=== PATIENT | male | born 1980 | race African-American/Black ===

== ENCOUNTER 2023-06-10 09:30 | Inpatient (IN) | payer OTHER ==
[2023-06-05 17:55] VITALS: BMI 25.8
[2023-07-01] MEDS ORDERED: MIDAZOLAM HCL 2 MG/2 ML SINGLE DOSE VIAL ONE ×2 (07:12→07:19)
[2023-07-01] MEDS ORDERED: DEXAMETHASONE SOD PHOSPHATE/PF 10 MG/ML SDV ONE (07:12)
[2023-07-01] MEDS ORDERED: ROPIVACAINE HCL 0.5% 30ML VIAL ONE (07:12)
[2023-07-01] MEDS ORDERED: PROPOFOL 40 ML ONE (07:19)
[2023-07-01] MEDS ORDERED: BUPIVACAINE HCL/PF 0.5% (5MG/ML) 10 ML VIAL ONE (08:01)
[2023-07-01] MEDS ORDERED: VANCOMYCIN 1,000 MG VIAL (RESTRICTED TO ID ONLY) ONE ×2 (08:08→09:44)
[2023-07-01] MEDS ORDERED: TRANEXAMIC ACID 1000 MG/10 ML VIAL ONE (09:44)
[2023-07-01] MEDS ORDERED: PHENYLEPHRINE HCL 10 MG/1 ML SINGLE DOSE VIAL ONE (09:44)
[2023-07-01] MEDS ORDERED: ceFAZolin SODIUM 1 GM VIAL ONE (09:44)
[2023-07-01] MEDS ORDERED: ONDANSETRON 4 MG/2 ML VIAL ONE (09:44)
[2023-07-01] MEDS ORDERED: KETOROLAC TROMETHAMINE 30 MG/1 ML VIAL ONE (09:44)
[2023-07-01] MEDS ORDERED: ONDANSETRON 4 MG/2 ML VIAL IVPUSH PRN ×2 (10:16→10:35)
[2023-07-01] MEDS ORDERED: oxyCODONE HCL 5 MG TABLET PO PRN ×2 (10:16)
[2023-07-01] MEDS ORDERED: ACETAMINOPHEN 1000 MG/100 ML BAG IVPB ONE (10:30)
[2023-07-01] MEDS ORDERED: LACTATED RINGERS SOLUTION 1,000 ML IV SCH (10:30)
[2023-07-01] MEDS ORDERED: MAG HYDROX/AL HYDROX/SIMETH 30 ML UNIT-DOSE CUP PO PRN (10:35)
[2023-07-01] MEDS ORDERED: MAGNESIUM HYDROX 2400MG/30ML ORAL SUSPENSION 30 ML CUP PO PRN (10:35)
[2023-07-01] MEDS ORDERED: ACETAMINOPHEN INJECTION 100 ML IVPB ONE (11:33)
[2023-07-01] MEDS: CEFAZOLIN SODIUM 2 GM in DEXTROSE 5%-WATER 100 ML IVPB SCH ×2 (15:12→22:23)
[2023-07-01] MEDS: KETOROLAC TROMETHAMINE 30 MG/1 ML VIAL IVPUSH SCH ×2 (16:02→16:10)
[2023-07-01] MEDS: ACETAMINOPHEN 500 MG TABLET (FP) PO SCH (18:08)
[2023-07-01] MEDS ORDERED: VANCOMYCIN/WATER FOR INJ (PEG) 1,000 MG/200 ML BAG IVPB ONE (21:00)
[2023-07-01] MEDS ORDERED: oxyCODONE HCL 10 MG SUSTAINED ACTING TABLET PO SCH (22:00)
[2023-07-01] MEDS: SENNOSIDES/DOCUSATE COMBO (SENNA PLUS) TABLET (UD) PO SCH (22:25)
[2023-07-01] MEDS: CELECOXIB 200 MG CAPSULE PO SCH (22:25)
[2023-07-01] MEDS: ASPIRIN 81 MG CHEWABLE TABLETS PO SCH (22:26)
[2023-07-02] MEDS: ACETAMINOPHEN 500 MG TABLET (FP) PO SCH ×4 (00:54→19:00)
[2023-07-02] MEDS: CEFAZOLIN SODIUM 2 GM in DEXTROSE 5%-WATER 100 ML IVPB SCH (03:54)
[2023-07-02 08:41] LABS: CALCIUM 9.3 mg/dl (8.5-10.1); CREATININE 0.9 mg/dl (0.6-1.3); POTASSIUM 4.2 mmol/L (3.5-5.1)
[2023-07-02 08:50] LABS: HEMATOCRIT 45.7 % (35.4-49); HEMOGLOBIN 14.1 G/dL (11.7-16.9); MCH 24.4 pg (25.7-33.7); MCHC 30.9 g/dl (32.0-35.9); MEAN CELL VOLUME 78.9 fl (80-96); MEAN PLT VOLUME 9.4 fl (7.5-11.1); PLATELET COUNT 251.1 10^3/uL (134-434); RBC 5.79 10^6/uL (4.00-5.60); RDW 16.7 % (11.9-15.9); WHITE BLOOD COUNT 14.6 10^3/uL (4.0-10.8)
[2023-07-02] MEDS: PANTOPRAZOLE 40 MG TABLET PO SCH (09:10)
[2023-07-02] MEDS: CELECOXIB 200 MG CAPSULE PO SCH ×2 (09:11→22:00)
[2023-07-02] MEDS: ASPIRIN 81 MG CHEWABLE TABLETS PO SCH ×2 (09:11→21:59)
[2023-07-02] MEDS: SENNOSIDES/DOCUSATE COMBO (SENNA PLUS) TABLET (UD) PO SCH ×2 (09:11→21:59)
[2023-07-02] MEDS: CEFTRIAXONE 2 GM in DEXTROSE 5%-WATER 100 ML IVPB SCH (14:15)
[2023-07-03] MEDS: ACETAMINOPHEN 500 MG TABLET (FP) PO SCH ×4 (06:30→19:02)
[2023-07-03 08:38] LABS: HEMATOCRIT 42.9 % (35.4-49); HEMOGLOBIN 13.5 G/dL (11.7-16.9); MCH 24.8 pg (25.7-33.7); MCHC 31.6 g/dl (32.0-35.9); MEAN CELL VOLUME 78.4 fl (80-96); MEAN PLT VOLUME 9.3 fl (7.5-11.1); PLATELET COUNT 310.8 10^3/uL (134-434); RBC 5.47 10^6/uL (4.00-5.60); RDW 16.6 % (11.9-15.9); WHITE BLOOD COUNT 8.3 10^3/uL (4.0-10.8)
[2023-07-03 08:53] LABS: BILIRUBIN,TOTAL 0.3 mg/dl (0.2-1); CALCIUM 8.7 mg/dl (8.5-10.1); CREATININE 0.9 mg/dl (0.6-1.3); PHOSPHOROUS 3.5 (2.5-4.9); POTASSIUM 4.1 mmol/L (3.5-5.1); TOT PROT 6.2 g/dl (6.4-8.2)
[2023-07-03] MEDS: ASPIRIN 81 MG CHEWABLE TABLETS PO SCH ×2 (09:39→22:52)
[2023-07-03] MEDS: CEFTRIAXONE 2 GM in DEXTROSE 5%-WATER 100 ML IVPB SCH (09:39)
[2023-07-03] MEDS: PANTOPRAZOLE 40 MG TABLET PO SCH (09:41)
[2023-07-03] MEDS: LACTOBACILLUS ACIDOPHILUS 1 TABLET PO SCH (09:41)
[2023-07-03] MEDS: SENNOSIDES/DOCUSATE COMBO (SENNA PLUS) TABLET (UD) PO SCH ×2 (09:41→22:51)
[2023-07-03] MEDS: CELECOXIB 200 MG CAPSULE PO SCH ×2 (17:57→22:52)
[2023-07-04] MEDS: ACETAMINOPHEN 500 MG TABLET (FP) PO SCH ×3 (07:15→14:12)
[2023-07-04] MEDS ORDERED: VANCOMYCIN 1,000 MG in DEXTROSE 5%-WATER - 250 ML IVPB SCH (08:00)
[2023-07-04] MEDS: PANTOPRAZOLE 40 MG TABLET PO SCH (09:42)
[2023-07-04] MEDS: CEFTRIAXONE 2 GM in DEXTROSE 5%-WATER 100 ML IVPB SCH (09:42)
[2023-07-04] MEDS: ASPIRIN 81 MG CHEWABLE TABLETS PO SCH ×2 (09:42→22:24)
[2023-07-04] MEDS: LACTOBACILLUS ACIDOPHILUS 1 TABLET PO SCH (09:42)
[2023-07-04] MEDS: CELECOXIB 200 MG CAPSULE PO SCH ×2 (09:42→22:25)
[2023-07-04] MEDS: SENNOSIDES/DOCUSATE COMBO (SENNA PLUS) TABLET (UD) PO SCH ×2 (09:43→22:25)
[2023-07-05] MEDS ORDERED: ACETAMINOPHEN 325 MG TABLET (FP) PO PRN ×2 (07:40→09:02)
[2023-07-05 08:29] LABS: CALCIUM 8.9 mg/dl (8.5-10.1); CREATININE 0.9 mg/dl (0.6-1.3); HEMATOCRIT 42.4 % (35.4-49); HEMOGLOBIN 13.5 G/dL (11.7-16.9); MCH 24.7 pg (25.7-33.7); MCHC 31.9 g/dl (32.0-35.9); MEAN CELL VOLUME 77.6 fl (80-96); MEAN PLT VOLUME 9.4 fl (7.5-11.1); PLATELET COUNT 221.8 10^3/uL (134-434); POTASSIUM 4.1 mmol/L (3.5-5.1); RBC 5.47 10^6/uL (4.00-5.60); RDW 16.1 % (11.9-15.9); WHITE BLOOD COUNT 8.1 10^3/uL (4.0-10.8)
[2023-07-05] MEDS ORDERED: oxyCODONE HCL 5 MG TABLET PO PRN ×2 (09:02)
[2023-07-05] MEDS: CEFTRIAXONE 2 GM in DEXTROSE 5%-WATER 100 ML IVPB SCH (09:25)
[2023-07-05] MEDS: ASPIRIN 81 MG CHEWABLE TABLETS PO SCH ×2 (09:25→21:39)
[2023-07-05] MEDS: PANTOPRAZOLE 40 MG TABLET PO SCH (09:25)
[2023-07-05] MEDS: CELECOXIB 200 MG CAPSULE PO SCH ×2 (09:25→21:39)
[2023-07-05] MEDS: SENNOSIDES/DOCUSATE COMBO (SENNA PLUS) TABLET (UD) PO SCH ×2 (09:25→21:38)
[2023-07-05] MEDS: LACTOBACILLUS ACIDOPHILUS 1 TABLET PO SCH (09:25)
[2023-07-05 14:49] VITALS: RESP 18
[2023-07-06 06:45] VITALS: PULSE 66
[2023-07-06] MEDS: CELECOXIB 200 MG CAPSULE PO SCH (09:09)
[2023-07-06] MEDS: CEFTRIAXONE 2 GM in DEXTROSE 5%-WATER 100 ML IVPB SCH (09:09)
[2023-07-06] MEDS: ASPIRIN 81 MG CHEWABLE TABLETS PO SCH (09:09)
[2023-07-06] MEDS: LACTOBACILLUS ACIDOPHILUS 1 TABLET PO SCH (09:09)
[2023-07-06] MEDS: PANTOPRAZOLE 40 MG TABLET PO SCH (09:09)
[2023-07-06] MEDS: SENNOSIDES/DOCUSATE COMBO (SENNA PLUS) TABLET (UD) PO SCH (09:39)
[2023-07-06 10:33] VITALS: BP 122/78; TEMP 97.5
== END 2023-07-06 16:00 | disposition home or self-care (01) | DRG 465 ==
LOC: FM/S 07-01 06:10 → EDSTATUS 07-01 08:00 → FM/S 07-01 12:06
PROVIDERS: ADMIT Orthopaedic Surgery Orthopaedic Surgery of the Spine; ATTEND Orthopaedic Surgery Orthopaedic Surgery of the Spine
PROC: 0JBP0ZZ Excision of Left Lower Leg Subcutaneous Tissue and Fascia, Open Approach (ICD-10-PCS; 2023-07-01)
PROC: 0YHJ0YZ Insertion of Other Device into Left Lower Leg, Open Approach (ICD-10-PCS; 2023-07-01)
PROC: 3E10X8Z Irrigation of Skin and Mucous Membranes using Irrigating Substance (ICD-10-PCS; 2023-07-01)
PROC: 2W3RX1Z Immobilization of Left Lower Leg using Splint (ICD-10-PCS; 2023-07-01)
PROC: 0YP Anatomical Regions, Lower Extremities, Removal (ICD-10-PCS; 2023-07-01)
PROC: 02HV33Z Insertion of Infusion Device into Superior Vena Cava, Percutaneous Approach (ICD-10-PCS; principal; 2023-07-03)
PROC: B518ZZA Fluoroscopy of Superior Vena Cava, Guidance (ICD-10-PCS; 2023-07-03)
DX: M86.8X6 Other osteomyelitis, lower leg (principal); Z96.641 Presence of right artificial hip joint; G89.18 Other acute postprocedural pain; Z85.72 Personal history of non-Hodgkin lymphomas
CPT/HCPCS: 36415; 36569; 77001-TC-FY; 80048; 80053; 83735; 84100; 85027; 87070; 87205; 94760; 97116-GP; 97162-GP; C1751; C1889